=== PATIENT | male | born 1995 | race Caucasian/White ===

== ENCOUNTER 2023-10-06 16:11 | Emergency (ER) | payer OTHER ==
[2023-10-06 16:30] VITALS: BP 122/73; PULSE 73; RESP 19; TEMP 97.3; BMI 21.7
[2023-10-06] MEDS: morphine SULFATE 4 MG/ML VIAL IM ONE (16:35)
[2023-10-06] MEDS ORDERED: ACETAMINOPHEN 325 MG TABLET (FP) ONE (20:07)
[2023-10-06] MEDS: ACETAMINOPHEN 500 MG TABLET (FP) PO ONE (20:19)
== END 2023-10-06 21:26 | disposition home or self-care (01) ==
LOC: JER 16:11
PROC: 3E023GC Introduction of Other Therapeutic Substance into Muscle, Percutaneous Approach (ICD-10-PCS; principal; 2023-10-06)
DX: M25.512 Pain in left shoulder (principal); V43.53XA Car driver injured in collision with pick-up truck in traffic accident, initial encounter
CPT/HCPCS: 71046-TC-FY; 73030-TC-LT-FY; 73030-TC-RT-FY; 99284-25